=== PATIENT | male | born 1950 | race Caucasian/White ===

== ENCOUNTER 2016-08-20 15:03 | Outpatient (CLI) | payer MEDICARE, OTHER | END 2016-08-20 15:04 | disposition home or self-care (01) | LOC: LAB 15:03 | PROVIDERS: ATTEND Urology | DX: R97.20 Elevated prostate specific antigen [PSA] (principal) | CPT/HCPCS: 36415; 84153 ==

== ENCOUNTER 2017-02-09 15:41 | Outpatient (CLI) | payer MEDICARE, OTHER ==
--- NOTE | 2017-02-10 11:55 | XRAY Report ---
TWO-VIEW CHEST: 02/09/2017 CLINICAL INDICATION: Shortness of breath, history of asbestos exposure. FINDINGS: Frontal and lateral views of the chest demonstrate a normal cardiac silhouette. The lungs are clear. No effusion or pneumothorax is present. IMPRESSION: NORMAL CHEST. JOB #: [id number] EXT JOB #:[id number]
--- NOTE | 2017-02-10 11:56 | XRAY Report ---
THREE-VIEW RIGHT GREAT TOE: 02/09/2017 CLINICAL INDICATION: Pain, edema. FINDINGS: AP, lateral, oblique views of the right great toe demonstrate mild osteoarthritis of the i nterphalangeal joint and metatarsophalangeal joint. There is no evidence of acute fracture or disloc ation. No radiopaque foreign body is seen in the soft tissues. IMPRESSION: MILD OSTEOARTHRITIS. JOB #: [id number] EXT JOB #:[id number]
== END 2017-02-09 15:42 | disposition home or self-care (01) ==
LOC: DI 15:41
PROVIDERS: ATTEND Nurse Practitioner Family
DX: R06.02 Shortness of breath (principal); M19.071 Primary osteoarthritis, right ankle and foot; Z77.090 Contact with and (suspected) exposure to asbestos
CPT/HCPCS: 71020; 73660

== ENCOUNTER 2017-03-23 14:43 | Outpatient (CLI) | payer MEDICARE, OTHER | END 2017-03-23 14:44 | disposition home or self-care (01) | LOC: LAB 14:43 | PROVIDERS: ATTEND Urology | DX: C61 Malignant neoplasm of prostate (principal) | CPT/HCPCS: 36415; 84153 ==

== ENCOUNTER 2017-11-22 08:34 | Outpatient (CLI) | payer MEDICARE, OTHER | END 2017-11-22 08:35 | disposition home or self-care (01) | LOC: LAB 08:34 | PROVIDERS: ATTEND Urology | DX: C61 Malignant neoplasm of prostate (principal) | CPT/HCPCS: 36415; 84153 ==

== ENCOUNTER 2018-02-06 00:22 | Outpatient (CLI) | payer MEDICARE, OTHER | END 2018-02-06 00:23 | disposition critical access hospital (66) | LOC: EMS 00:22 | PROVIDERS: ATTEND Surgery | DX: R55 Syncope and collapse (principal); R42 Dizziness and giddiness; R51 Headache | CPT/HCPCS: A0425; A0429 ==

== ENCOUNTER 2018-02-06 00:34 | Emergency (ER) | payer MEDICARE, OTHER ==
--- NOTE | 2018-02-06 01:00 | ED Physician Documentation ---
PD HPI SYNCOPE - Stated complaint Stated Complaint: DIZZY AFTER CBD USE - Chief complaint Chief Complaint: Neuro - History obtained from History obtained from: Patient, Family - History of Present Illness Witnessed: Witnessed Timing - onset: Today Associated symptoms: None Injury occurred: None Pain level now: 0 Similar symptoms before: Has not had sx before Recently seen: Not recently seen - Additional information Additional information: patient had been moving heavy furniture earlier today; he had some back pain and generalized muscle aches as a result of this activity, and he thus used marijuana oil. He also had a few glasses of wine tonight. His says he often drinks a few glasses of wine at the end of the day, but the marijuana use is very occasional and that he had used twice as much as he has on previous occasions. She came home from work [employer] and found patient on couch, was "out of it" (per spouse), drowsy, eyes were "rolling" (her description is s/o nystagmus), and his speech was garbled and at times unintelligible. He was inappropriately laughing at times, but he also immediately transitioned to crying at one point. She thus called 911. She does not describe clear LOC and no witnessed fall or evidence he fell. Patient corroborates the alcohol and marijuana intake, but he does not recall the interaction with his that led to her concerns. Review of Systems Constitutional: denies: Fever Eyes: denies: Loss of vision, Decreased vision, Photophobia Cardiac: reports: Reviewed and negative Respiratory: reports: Reviewed and negative GI: reports: Reviewed and negative : denies: Dysuria, Frequency Musculoskeletal: reports: Back pain (improved since using marijuana). denies: Neck pain Neurologic: reports: Difficulty speaking. denies: Generalized weakness, Focal weakness, Numbness, Headache, Head injury PD PAST MEDICAL HISTORY - Past Medical History Past Medical History: Yes Cardiovascular: Hypertension Respiratory: None Neuro: None Endocrine/Autoimmune: None GI: None : Other HEENT: None Psych: None Musculoskeletal: None Derm: None Other Past Medical History: PROSTATE CANCER.... - Past Surgical History Past Surgical History: Yes General: Other - Allergies Allergies/Adverse Reactions: Allergies Allergy/AdvReac Type Severity Reaction Status Date / Time No Known Drug Allergies Allergy Verified 02/06/18 00:45 - Social History Does the pt smoke?: Yes Smoking Status: Current every day smoker Does the pt drink ETOH?: No Does the pt have substance abuse?: No - Immunizations Immunizations are current?: Yes - POLST Patient has POLST: No PD ED PE NORMAL - Vitals Vital signs reviewed: Yes - General General: Alert and oriented X 3, No acute distress, Well developed/nourished, Other (slurred speech, often mumbling and difficult to understand. 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, No motor deficit, No sensory deficit, Other (slurred speech as noted above) Eye Opening: Spontaneous Motor: Obeys Commands Verbal: Oriented GCS Score: 15 PD ED PE EXPANDED - Neuro Neuro: Nystagmus (rotatory) Results - Vitals Vitals: Vital Signs - 24 hr 02/06/18 02/06/18 02/06/18 00:41 00:54 01:04 Temperature 36.3 C L Heart Rate 93 92 97 Respiratory 17 17 17 Rate Blood Pressure 130/71 113/63 O2 Saturation 97 97 100 02/06/18 02/06/18 02/06/18 01:43 02:09 03:06 Temperature Heart Rate 87 91 84 Respiratory 16 17 16 Rate Blood Pressure 106/54 L O2 Saturation 99 99 98 02/06/18 02/06/18 02/06/18 03:33 03:35 03:49 Temperature Heart Rate 82 Respiratory 17 17 17 Rate Blood Pressure 94/55 L 112/64 O2 Saturation 97 98 Oxygen O2 Source Room air - EKG (time done) No standard instances Rate: Rate (enter#) (93) Rhythm: NSR Topping: Normal Intervals: Normal GA QRS: Normal Ischemia: Normal ST segments, T wave inversion (III (isolated)) - Labs Labs: Laboratory Tests 02/06/18 02/06/18 02/06/18 01:30 01:30 01:30 WBC 4.6 L RBC 3.48 L Hgb 11.7 L Hct 34.4 L MCV 99.0 H MCH 33.6 H MCHC 34.0 RDW 12.9 Plt Count 201 MPV 7.2 L Neut # (Auto) 2.8 Lymph # (Auto) 0.8 L Bowman # (Auto) 1.0 Eos # (Auto) 0.0 Baso # (Auto) 0.0 Absolute Nucleated RBC 0.00 Nucleated RBC % 0.1 Sodium 133 L Potassium 3.7 Chloride 102 Carbon Dioxide 22 Anion Gap 9.0 BUN 17 Creatinine 1.1 Estimated GFR (MDRD) 66 L Glucose 124 H Calcium 8.4 L Total Bilirubin 0.6 AST 30 ALT 23 Alkaline Phosphatase 44 Troponin I < 0.04 Total Protein 6.6 L Albumin 4.1 Globulin 2.5 Albumin/Globulin Ratio 1.6 Lipase 28 Ethyl Alcohol 183.0 - Rads (name of study) CT head Radiology: Prelim report reviewed, See rad report PD MEDICAL DECISION MAKING - ED course Complexity details: reviewed results, re-evaluated patient, considered differential, d/w patient, d/w family ED course: patient gradually improved in clarity of speech and was able to answer articulately and accurately prior to discharge. He had brief drop in SBP to mid/upper 80s late in ED stay, improved with bolus IV fluids and he was able to stand and ambulate without becoming symptomatic and without significant change in vital signs Departure - Departure Disposition: 01 Home, Self Care Clinical Impression: Syncope Qualifiers: Syncope type: unspecified Qualified Code(s): R55 - Syncope and collapse Condition: Good Instructions: ED Fainting Unkn Cause Follow-Up: Amirah Tomas PA [Primary Care Provider] - (Call in the morning to arrange for next available appointment. Your doctor might recommend further testing.) Discharge Date/Time: 02/06/18 03:50
[2018-02-06 01:42] LABS: BASOPHILS % (AUTO) 0.3 %; EOSINOPHILS % (AUTO) 0.7 %; HGB - HEMOGLOBIN 11.7 g/dL (14.0-18.0); LYMPHOCYTES # (AUTO) 0.8 10^3/uL (1.5-3.5); LYMPHOCYTES % (AUTO) 16.7 %; MEAN CORPUSCULAR HEMOGLOBIN 33.6 pg (27.0-31.0); MEAN PLATELET VOLUME 7.2 fL (7.4-11.4); NEUTROPHILS # (AUTO) 2.8 10^3/uL (1.5-6.6); NEUTROPHILS % (AUTO) 60.3 %; PLT - PLATELET COUNT 201 10^3/uL (130-450); RED BLOOD COUNT 3.48 10^6/uL (4.70-6.10); RED CELL DISTRIBUTION WIDTH 12.9 % (12.0-15.0); WHITE BLOOD COUNT 4.6 x10^3/uL (4.8-10.8)
[2018-02-06 01:54] LABS: ALBUMIN 4.1 g/dL (3.2-5.5); ALBUMIN/GLOBULIN RATIO 1.6 (1.0-2.2); BILIRUBIN,TOTAL 0.6 mg/dL (0.2-1.0); CALCIUM 8.4 mg/dL (8.5-10.3); CREATININE 1.1 mg/dL (0.6-1.2); TOTAL PROTEIN 6.6 g/dL (6.7-8.2)
--- NOTE | 2018-02-06 02:02 | CT Report ---
Reason: syncope Procedure Date: 02/06/2018 Accession Number: [id number] / [id number] Procedure: CT - Head W/O CPT Code: FULL RESULT: EXAM: CT HEAD EXAM DATE: 02/06/2018 01:36 AM. CLINICAL HISTORY: Syncope. COMPARISON: None. TECHNIQUE: Multiaxial CT images were obtained from the foramen magnum to the vertex. Reformats: Sagittal and coronal. IV contrast: None. In accordance with CT protocol optimization, one or more of the following dose reduction techniques were utilized for this exam: automated exposure control, adjustment of mA and/or KV based on patient size, or use of iterative reconstructive technique. FINDINGS: Parenchyma: No intraparenchymal hemorrhage. No evidence of mass, midline shift, or CT findings of acute infarction. Ramsay-white differentiation is distinct. Diffuse chronic microangiopathic white matter changes are evident. Extraaxial Spaces: Normal for age. No subdural or epidural collections identified. Ventricles: The ventricles and cortical sulci are mildly enlarged, consistent with age-related tissue loss. Sinuses and orbits: Imaged paranasal sinuses, orbits, and mastoids show no significant abnormality. Bones: No evidence of fracture or calvarial defect. Other: Mild intracranial atherosclerosis is present. IMPRESSION: Generalized age-related cortical atrophic changes without evidence of acute intracranial abnormality. RADIA
[2018-02-06] MEDS ORDERED: SODIUM CHLORIDE 0.9% 1,000 ML IV STA (02:53)
[2018-02-06 03:44] VITALS: BP 112/64
== END 2018-02-06 03:50 | disposition home or self-care (01) ==
LOC: EDUNIT# → ED 00:34
DX: R55 Syncope and collapse (principal); I10 Essential (primary) hypertension; Z85.46 Personal history of malignant neoplasm of prostate; F17.200 Nicotine dependence, unspecified, uncomplicated
CPT/HCPCS: 36415; 70450; 80053; 80320; 83690; 84484; 85025; 93005; 96360; 99283; 99284

== ENCOUNTER 2018-08-09 17:11 | Outpatient (CLI) | payer MEDICARE, OTHER | END 2018-08-09 17:12 | disposition home or self-care (01) | LOC: LAB 17:11 | PROVIDERS: ATTEND Orthopaedic Surgery | DX: M25.551 Pain in right hip (principal); Z96.641 Presence of right artificial hip joint | CPT/HCPCS: 36415; 81599; 82495; 85651; 86140 ==

== ENCOUNTER 2018-12-13 17:55 | Outpatient (CLI) | payer MEDICARE, OTHER | END 2018-12-13 17:56 | disposition home or self-care (01) | LOC: LAB 17:55 | PROVIDERS: ATTEND Urology | DX: Z85.46 Personal history of malignant neoplasm of prostate (principal) | CPT/HCPCS: 36415; 84153 ==

== ENCOUNTER 2019-06-03 10:28 | Outpatient (CLI) | payer MEDICARE, OTHER ==
[2019-06-03 11:17] LABS: BASOPHILS % (AUTO) 0.8 %; EOSINOPHILS # (AUTO) 0.2 10^3/uL (0.0-0.7); EOSINOPHILS % (AUTO) 3.5 %; HGB - HEMOGLOBIN 11.8 g/dL (14.0-18.0); LYMPHOCYTES # (AUTO) 0.9 10^3/uL (1.5-3.5); LYMPHOCYTES % (AUTO) 18.7 %; MEAN CORPUSCULAR HEMOGLOBIN 32.4 pg (27.0-31.0); MEAN CORPUSCULAR HGB CONC 32.2 g/dL (32.0-36.0); MEAN CORPUSCULAR VOLUME 100.5 fL (80.0-94.0); MEAN PLATELET VOLUME 9.2 fL (7.4-11.4); MONOCYTES # (AUTO) 0.5 10^3/uL (0.0-1.0); MONOCYTES % (AUTO) 10.5 %; NEUTROPHILS # (AUTO) 3.1 10^3/uL (1.5-6.6); NEUTROPHILS % (AUTO) 64.6 %; PLT - PLATELET COUNT 249 10^3/uL (130-450); RED BLOOD COUNT 3.64 10^6/uL (4.70-6.10); RED CELL DISTRIBUTION WIDTH 13.1 % (12.0-15.0); WHITE BLOOD COUNT 4.9 x10^3/uL (4.8-10.8)
== END 2019-06-03 10:29 | disposition home or self-care (01) ==
LOC: RT 10:28
PROVIDERS: ATTEND Orthopaedic Surgery
DX: Z01.818 Encounter for other preprocedural examination (principal); R79.89 Other specified abnormal findings of blood chemistry
CPT/HCPCS: 36415; 84520; 85025; 93005

== ENCOUNTER 2019-08-08 09:32 | Outpatient (CLI) | payer MEDICARE, OTHER ==
[2019-08-08 09:59] LABS: ALBUMIN 3.9 g/dL (3.2-5.5); ALBUMIN/GLOBULIN RATIO 1.3 (1.0-2.2); BILIRUBIN,TOTAL 0.6 mg/dL (0.2-1.0); CALCIUM 8.9 mg/dL (8.5-10.3); CREATININE 0.8 mg/dL (0.6-1.2); URIC ACID 6.2 mg/dL (2.6-7.2)
--- NOTE | 2019-08-08 22:20 | XRAY Report ---
Reason: GOUT Procedure Date: 08/08/2019 Accession Number: [id number] / [id number] Procedure: XR - Ankle 3 View LT CPT Code: Final Report FULL RESULT: EXAM: LEFT ANKLE RADIOGRAPHY EXAM DATE: 08/08/2019 09:57 AM. CLINICAL HISTORY: GOUT. COMPARISON: None. TECHNIQUE: 3 views. FINDINGS: Bones: No fractures or bone lesions. Tiny posterior calcaneal spur. Joints: Normal. No effusion. No subluxations. The ankle mortise is normally aligned. Soft Tissues: No obvious soft tissue swelling. Inferior to the medial malleolus adjacent to the talus, there are some amorphous calcifications of unknown etiology. Subtle vascular calcifications. IMPRESSION: Questionable periarticular calcifications medially below the medial malleolus. Otherwise unremarkable. RADIA
--- NOTE | 2019-08-08 22:22 | XRAY Report ---
Reason: GOUT Procedure Date: 08/08/2019 Accession Number: [id number] / [id number] Procedure: XR - Foot 3 View LT CPT Code: Final Report FULL RESULT: EXAM: LEFT FOOT RADIOGRAPHY EXAM DATE: 08/08/2019 09:57 AM. CLINICAL HISTORY: GOUT. COMPARISON: TOE(S) RT 02/09/2017 3:46 PM. TECHNIQUE: 3 views. FINDINGS: Bones: No fractures. Joints: Mild arthropathy at the first metatarsal phalangeal joint as demonstrated by some tiny spurs and possible mild joint space narrowing. No erosions or periarticular calcifications. No subluxations. Soft Tissues: Normal. No soft tissue swelling. IMPRESSION: Mild arthropathy at the first metatarsophalangeal joint may be osteoarthritis. Otherwise unremarkable left foot series. RADIA
== END 2019-08-08 09:33 | disposition home or self-care (01) ==
LOC: LAB 09:32
PROVIDERS: ATTEND Nurse Practitioner Family
DX: M10.9 Gout, unspecified (principal); M12.872 Other specific arthropathies, not elsewhere classified, left ankle and foot
CPT/HCPCS: 36415; 80053; 84550

== ENCOUNTER 2020-01-29 14:59 | Outpatient (CLI) | payer MEDICARE, OTHER | END 2020-01-29 15:00 | disposition home or self-care (01) | LOC: LAB 14:59 | PROVIDERS: ATTEND Urology | DX: Z85.46 Personal history of malignant neoplasm of prostate (principal) | CPT/HCPCS: 36415; 84153 ==

== ENCOUNTER 2020-04-30 14:40 | Outpatient (CLI) | payer MEDICARE, OTHER ==
--- NOTE | 2020-04-30 15:16 | CT Report ---
PROCEDURE: CERVICAL SPINE WO INDICATIONS: Right-sided neck pain TECHNIQUE: Noncontrast 3 mm thick sections acquired from the skull base to the T4 level. Sagittal and coronal r eformats were then constructed. For radiation dose reduction, the following was used: automated exp osure control, adjustment of mA and/or kV according to patient size. COMPARISON: None FINDINGS: These images demonstrate postsurgical changes of anterior discectomy and fusion at C3-C4 by means of a low profile anterior device and interbody device. There is also posterior element interfacet fixati on hardware at C3-C4. There is mature osseous fusion across the posterior elements and to a lesser de gree across intervertebral disc space. No abnormal lucency surrounding the hardware to suggest loosen ing. There is anterolisthesis of C3 on C4 measuring approximately 5 mm. There is no additional listhesis elsewhere. Degenerative straightening of the usual cervical lordosis . Vertebral body heights maintained. No acute finding in the unenhanced regional soft tissues and mckenzie g apices. At C2-C3, no spinal canal stenosis. Facet and uncovertebral hypertrophy contribute to moderate left a nd mild right neural foraminal stenosis. At C3-C4, no spinal canal stenosis. Facet uncovertebral hypertrophic degenerative moderate bilateral neural foraminal narrowing. At C4-C5, no spinal canal stenosis. Facet and uncovertebral hypertrophy contribute to moderate right and mild left neural foraminal stenosis. At C5-C6, no spinal canal stenosis. At least moderate bilateral neural foraminal narrowing related to facet and uncovertebral hypertrophy. At C6-C7, no spinal canal stenosis. There is mild bilateral neural foraminal narrowing due to uncover tebral spurring. At C7-T1, no spinal canal or neural foraminal stenosis. IMPRESSION: Multilevel multifactorial degenerative changes, most pronounced at C5-C6 where there is at least mode rate bilateral neural foraminal stenosis. Additional areas of moderate neural foraminal narrowing pre sent at from C2-C3 through C4-C5. Correlate for any corresponding radicular symptoms. Post surgical changes of anterior and posterior fixation at C3-C4 with no acute complicating hardware features. Reviewed by: Saud Velásquez MD on 04/30/2020 3:15 PM PST Approved by: Saud Velásquez MD on 04/30/2020 3:15 PM PST Station ID: [id number]
== END 2020-04-30 14:41 | disposition home or self-care (01) ==
LOC: DI 14:40
PROVIDERS: ATTEND Orthopaedic Surgery
DX: M47.812 Spondylosis without myelopathy or radiculopathy, cervical region (principal)

== ENCOUNTER 2021-03-04 06:50 | Outpatient (CLI) | payer MEDICARE, OTHER ==
--- NOTE | 2021-03-04 08:30 | Ultrasound Report ---
PROCEDURE: Aorta Screening INDICATIONS: HIST OF SMOKING, SYSTOLIC MURMUR TECHNIQUE: Real time scanning was performed of the aorta and iliac arteries, with image documentatio n. COMPARISON: None FINDINGS: Aorta: Proximal aortic diameter measures 2.7 x 2.8 cm. Mid-aorta measures 2.2 x 2.2 cm. Distal aor tic diameter is 1.9 x 1.7 cm. Iliac arteries: Right common iliac artery measures 1.2 x 1.1 cm. Left common iliac artery measures 1.1 x 1.1 cm. IMPRESSION: No evidence of abdominal aortic aneurysm. Reviewed by: Nadir Negrete MD on 03/04/2021 8:28 AM PST Approved by: Nadir Negrete MD on 03/04/2021 8:28 AM PST Station ID: [id number]
== END 2021-03-04 06:51 | disposition home or self-care (01) ==
LOC: DI 06:50
PROVIDERS: ATTEND Nurse Practitioner Family
DX: Z13.6 Encounter for screening for cardiovascular disorders (principal); Z87.891 Personal history of nicotine dependence

== ENCOUNTER 2021-04-14 08:57 | Outpatient (CLI) | payer MEDICARE, OTHER | END 2021-04-14 08:58 | disposition home or self-care (01) | LOC: DI 08:57 | PROVIDERS: ATTEND Nurse Practitioner Family | DX: R01.1 Cardiac murmur, unspecified (principal); I51.7 Cardiomegaly; I70.0 Atherosclerosis of aorta; I34.8 Other nonrheumatic mitral valve disorders | CPT/HCPCS: 93306 ==

== ENCOUNTER 2021-06-01 14:51 | Emergency (ER) | payer MEDICARE, OTHER ==
--- OUTSIDE RECORDS SUMMARY | 2021-06-01 15:33 | EXTERNAL MEDICAL SUMMARY RPT | Continuity of Care Document ---
:1950 Author Organization [facility] Address [address] [place] [address] Phone Care Team Providers Name Role Phone Amirah Tomas Unavailable Unavailable Amirah Tomas Unavailable Unavailable Allergies No information. Encounters No information. Medications No information. Problems date description facility [id number] Encounter for other preprocedural exami [facility] [id number] Contact with and (suspected) exposure t o COVID-19 [facility] Procedures date description facility [id number] [facility] Results No information. Vital Signs date measurement value source [id number] temperature_standard 97.4 F [id number] temperature_metric 36.33 C [id number] heart_rate 66 /min
[2021-06-01] MEDS ORDERED: oxyCODONE 5 MG TABLET PO STA (15:37)
[2021-06-01] MEDS ORDERED: methocarbamoL 500 MG TABLET PO STA (15:37)
--- NOTE | 2021-06-01 16:02 | CT Report ---
PROCEDURE: HEAD WO INDICATIONS: fall, head injury TECHNIQUE: Noncontrast 4.5 mm thick angled axial sections acquired from the foramen magnum to the vertex. For r adiation dose reduction, the following was used: automated exposure control, adjustment of mA and/or kV according to patient size. COMPARISON: CT C-spine 322 FINDINGS: Image quality: Excellent. The ventricular system and cortical sulci demonstrate atrophy, consistent for patient's stated age. There are areas of hypodensity in the periventricular and subcortical white matter. There is no acut e intra or extra-axial fluid collection. No acute hemorrhage, mass lesion or midline shift. Senescen t basal ganglia calcifications are present. Brainstem is unremarkable. Globes are symmetrical. Sinuses are aerated. Osseous structures are intact. IMPRESSION: 1. No acute intracranial process. 2. Mild atrophy and chronic microvascular ischemic changes. Reviewed by: Kelli Livingston MD on 06/01/2021 4:00 PM PST Approved by: Kelli Livingston MD on 06/01/2021 4:00 PM [facility] Station ID: [id number]
--- NOTE | 2021-06-01 16:03 | CT Report ---
PROCEDURE: CERVICAL SPINE WO INDICATIONS: fall, neck pain TECHNIQUE: Noncontrast 3 mm thick sections acquired from the skull base to the T4 level. Sagittal and coronal r eformats were then constructed. For radiation dose reduction, the following was used: automated exp osure control, adjustment of mA and/or kV according to patient size. COMPARISON: CT cervical spine 04/30/2020 FINDINGS: Image quality: Excellent. Bones: No fractures or dislocations. Visualized superior ribs are intact. Anterior fusion is prese nt at C3-4. There is grade 1 anterolisthesis of C3 on C4, unchanged. Multilevel moderate to severe di sc space narrowing is present most severe at C5-6, C6-7. Multilevel anterior osteophytes are present also most severe from C5 through C7. Multilevel uncovertebral hypertrophy as well as foraminal narrow ing are again noted. Soft tissues: Prevertebral soft tissues are normal in thickness. No paravertebral hematomas. No ap ical pneumothoraces. IMPRESSION: Postsurgical and degenerative changes without visualized fracture. Reviewed by: Kelli Livingston MD on 06/01/2021 4:02 PM PST Approved by: Kelli Livingston MD on 06/01/2021 4:02 PM PST Station ID: [id number]
--- NOTE | 2021-06-01 16:27 | XRAY Report ---
PROCEDURE: Ribs w/PA Chest RT INDICATIONS: fall, R rib pain, lower TECHNIQUE: 3 views of the right ribs were acquired, along with a single view chest. COMPARISON: None FINDINGS: Surgical changes and devices: None. Bones and chest wall: There are nondisplaced right lateral 10th and 11th rib fractures.. No suspicio us bony lesions. Overlying soft tissues appear unremarkable. Lungs and pleura: No pleural effusions or pneumothorax. Lungs appear clear. Mediastinum: Mediastinal contours appear normal. Heart size is normal. IMPRESSION: Nondisplaced right lateral 10th and 11th rib fractures. Reviewed by: Kelli Livingston MD on 06/01/2021 4:26 PM PST Approved by: Kelli Livingston MD on 06/01/2021 4:26 PM PST Station ID: [id number]
--- NOTE | 2021-06-01 16:27 | XRAY Report ---
PROCEDURE: Lumbar Spine 2 View INDICATIONS: fall, low back pain TECHNIQUE: 2 views of the lumbar spine were acquired. COMPARISON: None. FINDINGS: Bones: 5 nek-sae-jzaqels vertebrae are present. There is trace retrolisthesis of L1 on L2, L2 on L3 , L3 on L4. Mild to moderate disc space narrowing is present at L2-3, L3-4. Moderate to severe forami nal narrowing is present L1-L2, L2-3, L3-4 and L5-S1. Posterior fusion from L4 through S1 is intact w ithout evidence of hardware fracture. Right hip arthroplasty is unremarkable. No vertebral body compr ession fractures. No suspicious bony lesions. Soft tissues: Overlying bowel gas pattern is normal. No suspicious soft tissue calcifications. IMPRESSION: Multilevel degenerative changes. No visualized acute fracture or dislocation. However, o ccult injury cannot be excluded. Recommend short interval imaging follow-up in 7-10 days as clinicall y indicated for additional evaluation. Reviewed by: Kelli Livingston MD on 06/01/2021 4:26 PM PST Approved by: Kelli Livingston MD on 06/01/2021 4:26 PM PST Station ID: [id number]
--- NOTE | 2021-06-01 16:31 | ED Physician Documentation ---
History of Present Illness - Stated complaint Stated Complaint: FALL - Chief complaint Chief Complaint: Trauma Ch/Bk - History obtained from History obtained from: Patient - History of Present Illness Timing: How many days ago (2) Pain level max: 8 Pain level now: 8 - Additonal information Additional information: Patient is a 71-year-old male who presents to the emergency department after a fall down an embankment 2 days ago at home. Complaint of right rib pain, low back pain, neck pain and head pain. History of cervical spine surgery as well as lumbar spine fusion. Worse with movement, better with rest. Has not taken anything for pain. No loss of consciousness. Does not take any blood thinners. Review of Systems Ten Systems: 10 systems reviewed and negative Constitutional: denies: Fever, Chills Cardiac: denies: Chest pain / pressure, Palpitations GI: denies: Abdominal Pain, Vomiting, Diarrhea Skin: denies: Rash Musculoskeletal: denies: Neck pain, Back pain Neurologic: denies: Headache PD PAST MEDICAL HISTORY - Past Medical History Cardiovascular: Hypertension Respiratory: None Neuro: None Endocrine/Autoimmune: None GI: None : Other HEENT: None Psych: None Musculoskeletal: None Derm: None - Past Surgical History Past Surgical History: Yes General: Other - Present Medications Home Medications: Ambulatory Orders Medication Instructions Recorded Confirmed Oxycodone HCl/Acetaminophen 1 - 2 each PO Q6H PRN #14 tablet 06/01/21 [Percocet 5-325 mg Tablet] methocarbamoL [Robaxin] 500 mg PO Q6H PRN #20 tablet 06/01/21 - Allergies Allergies/Adverse Reactions: Allergies Allergy/AdvReac Type Severity Reaction Status Date / Time No Known Drug Allergies Allergy Verified 06/01/21 14:58 - Social History Does the pt smoke?: Yes Smoking Status: Current every day smoker Does the pt drink ETOH?: Yes ETOH Use: Wine Does the pt have substance abuse?: No - Immunizations Immunizations are current?: Yes - POLST Patient has POLST: No PD ED PE NORMAL - Vitals Vital signs reviewed: Yes - General General: Alert and oriented X 3, No acute distress - HEENT HEENT: Atraumatic, Moist mucous membranes - Neck Neck: Supple, no meningeal sign, No bony TTP, Other (Mild upper C-spine tenderness to palpation. No step-off or deformity.) - Cardiac Cardiac: RRR, Strong equal pulses - Respiratory Respiratory: No respiratory distress, Clear bilaterally - Abdomen Abdomen: Soft, Non tender, Non distended - Back Back: Other (Tender to palpation over the right lower ribs, anterior aspect. Also mild tenderness to mid lumbar, L3-5.) - Derm Derm: Warm and dry - Extremities Extremities: Normal ROM s pain, No edema, No calf tenderness / cord - Neuro Neuro: Alert and oriented X 3, blankbook forwarder 2-12 intact, No motor deficit, No sensory deficit, Other (Normal bilateral lower extremity patellar and ankle jerk reflexes. Normal great toe extension bilaterally. no saddle anesthesia) - Psych Psych: Normal mood, Normal affect Results - Vitals Vitals: Vital Signs - 24 hr 06/01/21 06/01/21 06/01/21 15:01 15:19 16:53 Temperature 36.7 C 36.6 C Heart Rate 78 79 92 Respiratory 18 20 18 Rate Blood Pressure 159/66 H 138/62 H O2 Saturation 97 98 98 Oxygen O2 Source Room air - Rads (name of study) Head CT Radiology: Final report received, EMP read contemporaneously, See rad report Cervical spine CT Radiology: Final report received, EMP read contemporaneously, See rad report Lumbar spine x-ray Radiology: Final report received, EMP read contemporaneously, See rad report Right ribs with chest x-ray Radiology: Final report received, EMP read contemporaneously, See rad report PD MEDICAL DECISION MAKING - ED course Complexity details: reviewed results, re-evaluated patient, considered differential, d/w patient ED course: 71-year-old male with 2 right-sided rib fractures on x-ray. Otherwise no acute findings on CT of the head and neck as well as plain films of the lumbar spine. Feels better after pain medication and muscle relaxants. Ambulating well. We will place on pain medication muscle relaxants for home. I am prescribing a short course of short-acting opioid pain medication for this patient. 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 I have discussed that the opioids are for short term therapy only, and will not be refilled from the ED. patient counseled regarding signs and symptoms for which I believe and urgent re-evaluation would be necessary. Patient with good understanding of and agreement to plan and is comfortable going home at this time This document was made in part using voice recognition software. While efforts are made to proofread this document, sound alike and grammatical errors may occur. Departure - Departure Disposition: 01 Home, Self Care Clinical Impression: Ribs, multiple fractures Qualifiers: Encounter type: initial encounter Fracture type: closed Laterality: right Qualified Code(s): S22.41XA - Multiple fractures of ribs, right side, initial e ncounter for closed fracture Neck muscle strain Qualifiers: Encounter type: initial encounter Qualified Code(s): S16.1XXA - Strain of muscle, fascia and tendon at neck level, initial encounter Low back strain Qualifiers: Encounter type: initial encounter Qualified Code(s): S39.012A - Strain of muscle, fascia and tendon of lower back, initial encounter Closed head injury Qualifiers: Encounter type: initial encounter Qualified Code(s): S09.90XA - Unspecified injury of head, initial encounter Condition: Good Instructions: ED Sprain Strain Lumbar, ED Fx Rib, ED Head Injury Closed, ED Neck Back Pain General Follow-Up: MURPHY SANDERS ARNP [Primary Care Provider] - Within 1 week Prescriptions: Oxycodone HCl/Acetaminophen [Percocet 5-325 mg Tablet] 1 - 2 each PO Q6H PRN #14 tablet PRN Reason: pain methocarbamoL [Robaxin] 500 mg PO Q6H PRN #20 tablet PRN Reason: muscle spasm Comments: Please follow-up with your doctor for further care. Return if you worsen. Your prescriptions were sent to the [facility] pharmacy. I am prescribing a short course of narcotic pain medication for you. These are potentially dangerous and addictive medications that should be used carefully. These medications may constipate you. Take an [id number]-[id number] stool softener (docusate) twice daily with plenty of water while taking these medications. If you go 24 hours without a bowel movement, take [id number] miralax, per package instructions. Do not drink or drive while taking these medications. If you received narcotic or sedating medications while in the emergency department, do not drive for 24 hours. Store this medication in a safe, secure place and out of reach of children. It is a violation of federal law to give or sell this medication to another person or to use in a manner other than prescribed. The ED will not refill narcotic prescriptions, including prescriptions lost or stolen. To dispose of unwanted medications: 1. [facility] at [address] in [place] has a medication drop box. They accept prescription medications (in pill form) Monday through Monday 9:00 a.m. to 5:00 p.m. 2. The [facility] accepts prescription medications (in pill form only) for disposal year round. Call for more information. 3. Contact the [facility] for the next [facility] sponsored prescription drug collection event. , [phone], or [phone]; Discharge Date/Time: 06/01/21 16:55
[2021-06-01 16:54] VITALS: BP 138/62
== END 2021-06-01 16:55 | disposition home or self-care (01) ==
LOC: ED 14:51
DX: S22.41XA Multiple fractures of ribs, right side, initial encounter for closed fracture (principal); S16.1XXA Strain of muscle, fascia and tendon at neck level, initial encounter; S39.012A Strain of muscle, fascia and tendon of lower back, initial encounter; W01.0XXA Fall on same level from slipping, tripping and stumbling without subsequent striking against object, initial encounter; Y92.828 Other wilderness area as the place of occurrence of the external cause; F17.200 Nicotine dependence, unspecified, uncomplicated
CPT/HCPCS: 70450; 71101; 72100; 72125; 99284; A9270

== ENCOUNTER 2022-04-30 15:27 | Outpatient (CLI) | payer MEDICARE, OTHER ==
[2022-04-30 15:54] LABS: BASOPHILS % (AUTO) 0.5 %; EOSINOPHILS # (AUTO) 0.1 10^3/uL (0.0-0.7); EOSINOPHILS % (AUTO) 2.1 %; HCT - HEMATOCRIT 35.7 % (42.0-52.0); HGB - HEMOGLOBIN 11.7 g/dL (14.0-18.0); LYMPHOCYTES # (AUTO) 1.1 10^3/uL (1.5-3.5); LYMPHOCYTES % (AUTO) 19.1 %; MEAN CORPUSCULAR HEMOGLOBIN 33.1 pg (27.0-31.0); MEAN CORPUSCULAR HGB CONC 32.8 g/dL (32.0-36.0); MEAN CORPUSCULAR VOLUME 101.1 fL (80.0-94.0); MEAN PLATELET VOLUME 9.5 fL (7.4-11.4); MONOCYTES # (AUTO) 0.5 10^3/uL (0.0-1.0); MONOCYTES % (AUTO) 8.9 %; NEUTROPHILS % (AUTO) 68.9 %; PLT - PLATELET COUNT 240 10^3/uL (130-450); RED BLOOD COUNT 3.53 10^6/uL (4.70-6.10); RED CELL DISTRIBUTION WIDTH 12.9 % (12.0-15.0); WHITE BLOOD COUNT 5.8 x10^3/uL (4.8-10.8)
[2022-04-30 16:09] LABS: ALBUMIN 4.2 g/dL (3.2-5.5); ALBUMIN/GLOBULIN RATIO 1.5 (1.0-2.2); BILIRUBIN,TOTAL 0.8 mg/dL (0.2-1.0); CALCIUM 9.3 mg/dL (8.5-10.3); CREATININE 0.8 mg/dL (0.6-1.2); POTASSIUM 4.2 mmol/L (3.5-5.0)
[2022-04-30 16:38] LABS: PSA TOTAL 0.07 ng/mL (0.000-2.000)
== END 2022-04-30 15:28 | disposition home or self-care (01) ==
LOC: LAB 15:27
PROVIDERS: ATTEND Nurse Practitioner Family
DX: I10 Essential (primary) hypertension (principal); Z85.46 Personal history of malignant neoplasm of prostate; D75.89 Other specified diseases of blood and blood-forming organs
CPT/HCPCS: 36415; 80053; 84153; 85025